=== PATIENT | female | born 1965 | race Hispanic/Latino ===

== ENCOUNTER 2017-12-14 23:53 | Emergency (ER) | payer OTHER ==
[2017-12-15 00:06] VITALS: BMI 38.2
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
[2017-12-15 02:27] VITALS: BP 127/72; PULSE 76; RESP 17; TEMP 98.2; O2SAT 98
== END 2017-12-15 02:13 | disposition home or self-care (01) ==
LOC: ED 23:53
DX: S13.4XXA Sprain of ligaments of cervical spine, initial encounter (principal); V49.49XA Driver injured in collision with other motor vehicles in traffic accident, initial encounter; Y92.410 Unspecified street and highway as the place of occurrence of the external cause; M54.9 Dorsalgia, unspecified
CPT/HCPCS: 84703; 96372; 99284; J1885

== ENCOUNTER 2018-08-23 16:50 | Outpatient (CLI) | payer OTHER | END 2018-08-23 16:51 | disposition home or self-care (01) | LOC: RAD 16:50 ==